=== PATIENT | female | born 1960 | race Two or more races ===

== ENCOUNTER → 2025-02-06 | Outpatient (BNVA) | payer MEDICAID, SELFPAY | END | disposition home or self-care (01) | PROVIDERS: PCP Family Medicine; Referring Provider Family Medicine; Visit Provider Urology | DX: R35.1 Nocturia (principal); Z87.440 Personal history of urinary (tract) infections; R73.03 Prediabetes | CPT/HCPCS: 81003; 99212; G0463 ==